=== PATIENT | female | born 1955 | race Caucasian/White ===

== ENCOUNTER 2018-12-23 14:02 | Emergency (ER) | payer BC ==
[~2018-12-23] VITALS: Ht 165.1 cm; Wt 90.7 kg
[2018-12-23 14:14] VITALS: BP 124/70
[2018-12-23] MEDS ORDERED: HYDR-2759 PO (14:25)
--- NOTE | 2018-12-23 14:35 | PHYS DOC ---
Past Medical History Past Medical History: Diabetes-Type II, Fibromyalgia, Hypertension, Other Additional Past Medical Histor: CHRONIC BACK PAIN Past Surgical History: Cholecystectomy, Hysterectomy, Other Additional Past Surgical Histo: BACK Alcohol Use: None Drug Use: None Adult General Chief Complaint Chief Complaint: SHOUDLER HPI HPI Patient is a 63 year old with history of fibromyalgia, hypertension, diabetes and chronic back pain who presents with right shoulder pain after lifting heavy boxes and furniture 4 days ago. Pain is localized over the anterior shoulder radiates up trapezius's towards the neck. Pain is worse with range of motion, shoulder movement and palpation. Patient's taking ibuprofen, Tylenol and tramadol at home with limited relief. She has not been evaluated by her primary care physician. She is missed the past 4 days of work. She denies extremity weakness, loss of sensation, shortness of breath, chest pain. No other acute symptoms or complaints. [] Review of Systems Review of Systems Review of symptoms as per history of present illness. All other review symptoms are negative. All other systems were reviewed and found to be within normal limits, except as documented in this note. Allergies Allergies Allergies Coded Allergies Type Severity Reaction Last Updated Verified No Known Drug Allergies 12/23/18 No Physical Exam Physical Exam Constitutional: Well developed, well nourished, no acute distress, non-toxic appearance. [] HENT: Normocephalic, atraumatic, bilateral external ears normal, oropharynx moist, no oral exudates, nose normal. [] Eyes: PERRLA, EOMI, conjunctiva normal, no discharge. [] Neck: Normal range of motion, tenderness, right. [] Cardiovascular:Heart rate regular rhythm, no murmur [] Lungs & Thorax: Bilateral breath sounds clear to auscultation [] Abdomen: Bowel sounds normal, soft, no tenderness. [] Skin: Warm, dry, no erythema, no rash. [] Back: No CVA tenderness,. [] Extremities: Shoulder, no swelling, deformity, or bruising appreciated. Anterior, superior shoulder pain, tenderness reproduces with palpation. Increased pain with range of motion. IPatietn able to abduct arm against resistance. No motor weakness or loss of sensation. [] Neurologic: Alert and oriented X 3, extremity, normal motor function, normal sensory function, no focal deficits noted. [] Psychologic: Affect normal, judgement normal, mood normal. [] Current Patient Data Vital Signs Vital Signs Date Time Temp Pulse Resp B/P (MAP) Pulse Ox O2 Delivery O2 Flow Rate FiO2 12/23/18 14:14 99.1 78 16 124/70 (88) 98 Room Air 99.1 EKG EKG [] Radiology/Procedures Radiology/Procedures [] Course & Med Decision Making Course & Med Decision Making Pertinent Labs and Imaging studies reviewed. (See chart for details) [Recommend supportive care with PCP follow-up.] Dragon Disclaimer Dragon Disclaimer This electronic medical record was generated, in whole or in part, using a voice recognition dictation system. Departure Departure Impression: Primary Impression: Right shoulder pain Disposition: HOME/RESIDENCE PRIOR TO ADM Condition: GOOD Patient Instructions: Shoulder Pain, [id number] Additional Instructions: Please arm sling, take ibuprofen for pain and hydrocodone as needed for additional relief. Scripts Hydrocodone/Acetaminophen (Hydrocodone-Acetamin 5-325 mg) 1 Each Tablet 1 EACH PO Q6HRS, #10 TAB Prov: KRISTINE ARAGON DO 12/23/18 KRISTINE ARAGON DO Dec 23, 2018 14:35
== END 2018-12-23 14:34 | disposition home or self-care (01) ==
LOC: ER 14:02
DX: M25.511 Pain in right shoulder (principal); I10 Essential (primary) hypertension; E11.9 Type 2 diabetes mellitus without complications; G89.29 Other chronic pain
CPT/HCPCS: 99283

== ENCOUNTER → 2021-01-02 | Outpatient (CLI) | payer MEDICARE, OTHER ==
[2019-07-22 11:00] VITALS: BP 111/53
[~2021-01-02] MED LIST: ALPR1TAB6 PO; ASPI-630 PO; ATOR10TA60 PO; BUPR100T7 PO; CHOL500021 PO; FLUO10CA13 PO; HYDR-2759 PO; INSU100V37 SQ; LACT1CAP19 PO; LEVO25TA4 PO; LEVO500T59 PO; MAGN250T2 PO; METF100010 PO; REGADENOSON 0.4 MG/5 ML DISP.SYRIN. IV ONE; TRAM50TA PO; TRIA1CAP3 PO
--- NOTE | 2021-01-02 13:03 | RAD ---
MR#: [id number] Date of Study: 01/02/2021 Ordering Physician: CHADWICK NICOLE, Referring Physician: MAX TESFAYE Tech: CEFERINO Kelley, ARRT (R) (N) APPROVED REPORT Test Type: Pharmacological Stress Nurse/Tech: Yovana Green R.N. Test Indications: cad Cardiac History: cad, dm, smoker Medications: see ehr Medical History: see ehr Resting ECG: sr Resting Heart Rate: 72 bpm Resting Blood Pressure: 137/62mmHg Pretest Chest Pain: No chest pain Nurse/Tech Notes lungs cta, heart tones regular Consent: The procedure was explained to the patient in lay terms. Informed consent was witnessed. Jerman eout was entered into [employer]. History and Stress Test performed by RT Zenia (R) (N) Pharm. Details Pharmacologic stress testing was performed using 0.4mg per 5ml of regadenoson given intravenously ove r 7-10 seconds. Stress Symptoms No chest pain or symptoms.Dyspnea POST EXERCISE Reason for Termination: Infusion complete Target HR: No Max HR: 90 bpm Max Blood Pressure: 151/59mmHg Chest Pain: No. Arrhythmia: No. ST Change: No. INTERPRETATION Stress EKG Conclusion: The resting EKG shows a sinus rhythm with mild nonspecific ST-T wave changes. The stress EKG shows no significant changes from baseline. No EKG evidence of stress-induced ischemia. Imaging Protocol IMAGE PROTOCOL: Rest Tc-99m/stress Tc-99m 1 day Rest: Stress: Viability: Radiopharm.Tc99m HrnvayisbBz09h Sestamibi Dose10.4mCi 33mCi Img Date 01/02/2021 01/02/2021 Inj-Img Yevf70pth. 60min. Rest Admin Site:IV - Right AntecubitalAdministrator:YESI Cherry Stress Admin Site: IV - Right AntecubitalAdministrator: RT Zenia (R)(N) STRESS DATA End Diast. Vol.27.0mlLVEDV index BSA14.0ml End Syst. Vol.1.0mlLVESV index BSA1.0ml Myocardial Mass65.0gEject. Wzejkjqo85.0% Stress Scores Regional WT1.00Summed WT10.00 Regional WM0.00Summed WM0.00 LV Perfusion The stress scans showed no significant defects. The rest scans showed no significant defects. Nuclear imaging showed no reversible ischemia or infarct. Wall Motion Left ventricular systolic function is normal with an ejection fraction of greater than 70%. LV Perf. Quant 17 Seg. SSS1.00 17 Seg. SRS0.00 17 Seg. SDS1.00 Stress Defect Extent (% LAD)0.00Rest Defect Extent (% LAD)0.00Rev. Defect Extent (% LAD)0.00 Stress Defect Extent (% LCX) 7.50Rest Defect Extent (% LCX)0.00Rev. Defect Extent (% LCX)2.50 Stress Defect Extent (% RCA)0.00Rest Defect Extent (% RCA)0.00Rev. Defect Extent (% RCA)0.00 Stress Defect Extent (% AAN)1.30Rest Defect Extent (% ANA)0.00Rev. Defect Extent (% ANA)0.40 Conclusion 1. No EKG evidence of stress-induced ischemia. 2. Nuclear imaging shows no reversible ischemia or infarct. 3. Normal left ventricular systolic function with an ejection fraction of greater than 70%. 4. Low risk Lexiscan nuclear stress test. Signed by : Naren Mathur MD Electronically Approved : 01/02/2021 13:02:32
== END ==
LOC: NM 08:13
PROVIDERS: ATTEND Internal Medicine Cardiovascular Disease
DX: I25.10 Atherosclerotic heart disease of native coronary artery without angina pectoris (principal)
CPT/HCPCS: 78452; 93017; A9500; J2785